=== PATIENT | male | born 1960 | race Caucasian/White ===

== ENCOUNTER 2019-03-07 20:14 | Emergency (ER) | payer BC ==
[2019-03-07 20:25] VITALS: BMI 25.7
[2019-03-07] MEDS ORDERED: CEFTRIAXONE 1 GM in DEXTROSE 5%-WATER - 50 ML IVPB ONE (20:42)
[2019-03-07] MEDS ORDERED: ACETAMINOPHEN 1000 MG/100 ML VIAL (NON FORMULARY) IVPB ONE (20:43)
[2019-03-07] MEDS ORDERED: DEXAMETHASONE SOD PHOSPHATE 10 MG/1 ML VIAL IVPUSH ONE (20:43)
[2019-03-07] MEDS ORDERED: SODIUM CHLORIDE 0.9% 500 ML INFUS.BAG IV ONE (20:43)
[2019-03-07] MEDS ORDERED: ALBUTEROL SO4 2.5/IPRATROPIUM 0.5 INH SOL 3 ML VIAL.NEB. NEB ONE (20:44)
[2019-03-07] MEDS ORDERED: ACETAMINOPHEN INJECTION 100 ML IVPB ONE (20:48)
[2019-03-07] MEDS ORDERED: cefTRIAXone SODIUM 1 GM VIAL ONE (20:49)
[2019-03-07] MEDS ORDERED: DEXAMETHASONE SOD PHOSPHATE 10 MG/1 ML VIAL ONE (20:49)
[2019-03-07] MEDS ORDERED: AZITHROMYCIN 500 MG VIAL IVPB ONE (20:49)
[2019-03-07] MEDS: AZITHROMYCIN IVPB 500 MG in DEXTROSE 5%-WATER - 250 ML IVPB ONE ×2 (21:15→21:44)
[2019-03-07 21:31] LABS: BASO % 0.4 % (0-2.0); EOS % 0.5 % (0-4.5); HEMATOCRIT 40.3 % (35.4-49); HEMOGLOBIN 13.5 GM/dl (11.7-16.9); LYMPH % 13.2 % (8-40); MCH 30.6 pg (25.7-33.7); MCHC 33.5 g/dl (32.0-35.9); MEAN CELL VOLUME 91.2 fl (80-96); MEAN PLT VOLUME 7.7 fl (7.5-11.1); MONO % 9.4 % (3.8-10.2); NEUT % 76.5 % (42.8-82.8); PLATELET COUNT 122 K/MM3 (134-434); RBC 4.43 M/mm3 (4.00-5.60); RDW 12.9 % (11.9-15.9); WHITE BLOOD COUNT 5.5 K/mm3 (4.0-10.8)
[2019-03-07 21:36] LABS: ALBUMIN 3.4 g/dl (3.4-5.0); BILIRUBIN,TOTAL 0.5 mg/dl (0.2-1); CALCIUM 8.2 mg/dl (8.5-10); POTASSIUM 3.3 mmol/L (3.5-5.1); TOT PROT 6.1 g/dl (6.4-8.2)
[2019-03-07] MEDS ORDERED: MAGNESIUM SULF 50% (8.12 MEQ/2 ML-1 GM VIAL) IVPB ONE (21:49)
[2019-03-07] MEDS ORDERED: POTASSIUM CHLORIDE TABS 20 MEQ TABLET.ER (FP) PO ONE ×2 (21:50→21:54)
[2019-03-07] MEDS ORDERED: MAGNESIUM SULF 50% (8.12 MEQ/2 ML-1 GM VIAL) ONE (21:55)
--- NOTE | 2019-03-07 22:15 | PDOC ---
Documentation entered by Unruly Sanches SCRIBE, acting as scribe for Nesha Meek MD. Nesha Meek MD: This documentation has been prepared by the Verónica stevens Andrys, SCRIBE, under my direction and personally reviewed by me in its entirety. I confirm that the documentation accurately reflects all work, treatment, procedures, and medical decision making performed by me. History of Present Illness - General Chief Complaint: Respiratory Stated Complaint: COUGH History Source: Patient Exam Limitations: No Limitations - History of Present Illness Initial Comments: 03/07/19 20:48 The patient is a 58 year old male with a significant past medical history of asthma who presents to the ED with 4 days of cough. Patient states he developed a productive cough of yellow colored sputum on (03/04/19). As per patient, his cough worsened and was productive of a brown colored sputum on Friday. Patient comes into the ED today because he developed a fever of 103.1 F earlier today. Patient took 300 ml of liquid motrin prior to arrival to the ED, with slight relief of present symptoms. Patient was diagnosed with pneumonia last year and hospitalized for two days. Patient did not get his flu shot this year. Denies chest pain or palpitations. Denies any other symptoms. Allergies: NKDA Social hx: Patient quit smoking several years ago (was a smoker for 18 years). Past History - Past Medical History Allergies/Adverse Reactions: Allergies Allergy/AdvReac Type Severity Reaction Status Date / Time No Known Allergies Allergy Verified 03/07/19 20:15 Home Medications: Ambulatory Orders Azithromycin [Zithromax Tri-Trevin (3 DAYS) -] 500 mg PO DAILY #3 tablet 03/07/19 Fluticasone/Salmeterol [Advair 250-50 Diskus] 1 each IH BID 03/07/19 Ibuprofen Oral Suspension [Motrin Oral Suspension -] 15 ml PO ONCE 03/07/19 Asthma: Yes COPD: Yes - Psycho Social/Smoking Cessation Hx Smoking History: Former smoker Have you smoked in the past 12 months: No Information on smoking cessation initiated: No Hx Alcohol Use: (3-4x/week) Review of Systems - Review of Systems Able to Perform ROS?: Yes Comments:: 03/07/19 20:48 CONSTITUTIONAL: + fever Absent: generalized weakness, malaise, loss of appetite HEENT: Absent: rhinorrhea, nasal congestion, throat pain, throat swelling, difficulty swallowing, mouth swelling, ear pain, eye pain, visual Changes CARDIOVASCULAR: Absent: chest pain, syncope, palpitations, irregular heart rate, lightheadedness , peripheral edema RESPIRATORY: + cough Absent: shortness of breath, dyspnea with exertion, orthopnea, wheezing, stridor , hemoptysis GASTROINTESTINAL: Absent: abdominal pain, abdominal distension, nausea, vomiting, diarrhea, constipation, melena, hematochezia GENITOURINARY: Absent: dysuria, frequency, urgency, hesitancy, hematuria, flank pain, genital pain MUSCULOSKELETAL: Absent: myalgia, arthralgia, joint swelling SKIN: Absent: rash, itching, pallor HEMATOLOGIC/IMMUNOLOGIC: Absent: easy bleeding, easy bruising, lymphadenopathy, frequent infections ENDOCRINE: Absent: unexplained weight gain, unexplained weight loss, heat intolerance, cold intolerance NEUROLOGIC: Absent: headache, focal weakness or paresthesias, dizziness, unsteady gait, seizure, mental status changes, bladder or bowel incontinence PSYCHIATRIC: Absent: anxiety, depression, suicidal or homicidal ideation, hallucinations. All Other Systems: Reviewed and Negative *Physical Exam - Vital Signs Last Vital Signs Temp Pulse Resp BP Pulse Ox 102.8 F H 106 H 20 124/83 95 03/07/19 20:14 03/07/19 20:14 03/07/19 20:14 03/07/19 20:14 03/07/19 20:14 - Physical Exam Comments: 03/07/19 20:49 GENERAL: + diaphoretic. Well developed, well nourished. Awake and alert. No acute distress. HEENT: Normocephalic, atraumatic. PERRLA, EOMI. No conjunctival pallor. Sclera are non- icteric. Moist mucous membranes. Oropharynx is clear. NECK: Supple. Full ROM. No JVD. Carotid pulses 2+ and symmetric, without bruits. No thyromegaly. No lymphadenopathy. CARDIOVASCULAR: Regular rate and rhythm. No murmurs, rubs, or gallops. Distal pulses are 2+ and symmetric. PULMONARY: + decreased breath sounds bilaterally. No wheezing, rales or rhonchi. No egophony. ABDOMINAL: Soft. Non-tender. Non-distended. No rebound or guarding. No organomegaly. Normoactive bowel sounds. MUSCULOSKELETAL Normal range of motion at all joints. No bony deformities or tenderness. No CVA tenderness. EXTREMITIES: No cyanosis. No clubbing. No edema. No calf tenderness. SKIN: Warm and dry. Normal capillary refill. No rashes. No jaundice. NEUROLOGICAL: Alert, awake, appropriate. Cranial nerves 2-12 intact. No deficits to light touch and temperature in face, upper extremities and lower extremities. No motor deficits in the in face, upper extremities and lower extremities. Normoreflexic in the upper and lower extremities. Normal speech. Toes are down- going bilaterally. Gait is normal without ataxia. PSYCHIATRIC: Cooperative. Good eye contact. Appropriate mood and affect. ED Treatment Course - LABORATORY CBC & Chemistry Diagram: 03/07/19 21:12 03/07/19 21:12 - RADIOLOGY Radiology Studies Ordered: Category Date Time Status CHEST PA & LAT [RAD] Stat Radiology 03/07/19 20:25 Taken Medical Decision Making - Medical Decision Making 03/07/19 21:13 CXR looks hazy on the right; likely early infitrate 03/07/19 22:58 Pt looks great; labs normal; K+ repleted; pt's flu culture negative Discharge - Discharge Information Problems reviewed: Yes Clinical Impression/Diagnosis: Pneumonia Condition: Stable Disposition: HOME - Admission No - Additional Discharge Information Prescriptions: Azithromycin [Zithromax Tri-Trevin (3 DAYS) -] 500 mg PO DAILY #3 tablet - Follow up/Referral - Patient Discharge Instructions Patient Printed Discharge Instructions: Pneumonia-Adult - Post Discharge Activity
[2019-03-07 22:47] VITALS: BP 101/53; PULSE 72; TEMP 99
--- NOTE | 2019-03-08 10:15 | EKG ---
Test Reason : Blood Pressure : / mmHG Vent. Rate : 089 BPM Atrial Rate : 089 BPM P-R Int : 150 ms QRS Dur : 074 ms QT Int : 360 ms P-R-T Axes : 065 011 065 degrees QTc Int : 438 ms NORMAL SINUS RHYTHM NORMAL ECG NO PREVIOUS ECGS AVAILABLE Confirmed by CINDY JARAMILLO MD ([id number]) on 03/08/2019 10:15:00 AM Referred By: [facility] Confirmed By:CINDY JARAMILLO MD
== END 2019-03-07 23:19 | disposition home or self-care (01) ==
LOC: FER 20:14
PROC: 3E033NZ Introduction of Analgesics, Hypnotics, Sedatives into Peripheral Vein, Percutaneous Approach (ICD-10-PCS; principal; 2019-03-07)
PROC: 3E03329 Introduction of Other Anti-infective into Peripheral Vein, Percutaneous Approach (ICD-10-PCS; 2019-03-07)
PROC: 3E033GC Introduction of Other Therapeutic Substance into Peripheral Vein, Percutaneous Approach (ICD-10-PCS; 2019-03-07)
DX: J18.9 Pneumonia, unspecified organism (principal); Z87.891 Personal history of nicotine dependence; J44.9 Chronic obstructive pulmonary disease, unspecified
CPT/HCPCS: 36415; 71046-TC-FY; 80053; 85025; 87040; 87804; 93005; 99284-25; J0131; J1100

== ENCOUNTER 2020-03-29 15:37 | Emergency (ER) | payer BC ==
[2020-03-29 16:02] VITALS: BP 121/88; BMI 26.2
[2020-03-29] MEDS ORDERED: ACETAMINOPHEN 500 MG TABLET (FP) PO ONE (16:34)
[2020-03-29] MEDS ORDERED: ACETAMINOPHEN 500 MG TABLET (FP) ONE (16:40)
[2020-03-29 18:12] VITALS: PULSE 83; TEMP 99.3
== END 2020-03-29 18:13 | disposition home or self-care (01) ==
LOC: FER 15:37
DX: J20.9 Acute bronchitis, unspecified (principal)
CPT/HCPCS: 71045-TC-FY; 87804; 99284-25; C9803; U0003

== ENCOUNTER 2022-08-05 17:37 | Emergency (ER) | payer BC ==
[2022-08-05 18:09] VITALS: BP 136/73; PULSE 96; RESP 18; TEMP 98; BMI 26.3
[2022-08-05] MEDS ORDERED: IBUPROFEN 600 MG TABLET (FP) PO ONE ×2 (18:27→18:30)
[2022-08-05 22:00] LABS: HEMATOCRIT 42.5 % (35.4-49); HEMOGLOBIN 14.3 GM/dL (11.7-16.9); MCH 29.4 pg (25.7-33.7); MCHC 33.7 g/dl (32.0-35.9); MEAN CELL VOLUME 87.2 fl (80-96); MEAN PLT VOLUME 7.7 fl (7.5-11.1); PLATELET COUNT 143 10^3/uL (134-434); RBC 4.87 M/mm3 (4.00-5.60); RDW 13.9 % (11.9-15.9); WHITE BLOOD COUNT 7.9 K/mm3 (4.0-10.0)
[2022-08-05 22:38] LABS: ANISOCYTOSIS 1+; MACROCYTOSIS 0
== END 2022-08-05 20:30 | disposition home or self-care (01) ==
LOC: FER 17:37
DX: M25.571 Pain in right ankle and joints of right foot (principal); R22.41 Localized swelling, mass and lump, right lower limb
CPT/HCPCS: 36415; 73610-TC-RT-FY; 73630-TC-RT-FY; 84550; 85027; 86618; 99284-25